=== PATIENT | female | born 1945 | race Caucasian/White ===

== ENCOUNTER → 2020-03-31 | Outpatient (CLI) | payer OTHER ==
[~2020-03-31] MED LIST: ASPI81CH; Biotin1 MG; CALCAVITD PO; CITA20 PO; CODLIVC PO; GABA100 PO; LEVSOD88 PO; MULVITMINF PO; VITAMIN D PO; ZOLP5 PO
== END ==
LOC: LAB SHORT 08:04 → PLD 08:04
DX: D48.5 Neoplasm of uncertain behavior of skin (principal)
CPT/HCPCS: 88305

== ENCOUNTER → 2022-04-07 | Outpatient (CLI) | payer OTHER ==
[~2022-04-07] MED LIST changes: +ASPI325 PO; +CLOBETASOL EMOL15 G1; +DULO30 PO; +Flovent Diskus50 MCG IH; +LOSA25 PO; +PRAV20 PO; +TOPROL XL25 MG PO
[2022-04-07 11:33] LABS: SARS-Cov-2 (COVID-19) PCR, MMC NEGATIVE (NEGATIVE)
== END ==
LOC: LAB 10:25 → LAB SHORT 10:25
PROVIDERS: Internal Medicine Cardiovascular Disease
DX: Z20.822 Contact with and (suspected) exposure to COVID-19 (principal)
CPT/HCPCS: U0004

== ENCOUNTER → 2022-07-19 | Outpatient (CLI) | payer OTHER | END | disposition home or self-care (01) | LOC: LAB SHORT 07:51 → PLD 07:51 | DX: C44.329 Squamous cell carcinoma of skin of other parts of face (principal); D36.11 Benign neoplasm of peripheral nerves and autonomic nervous system of face, head, and neck | CPT/HCPCS: 88305 ==

== ENCOUNTER → 2022-09-11 | Outpatient (CLI) | payer OTHER | END | disposition home or self-care (01) | LOC: LAB SHORT 11:22 → LAB 11:22 | DX: N39.0 Urinary tract infection, site not specified (principal) | CPT/HCPCS: 87077; 87086; 87186 ==

== ENCOUNTER → 2023-07-26 | Outpatient (CLI) | payer OTHER | END | disposition home or self-care (01) | LOC: LAB 13:09 → LAB SHORT 13:09 | DX: C44.310 Basal cell carcinoma of skin of unspecified parts of face (principal); D48.5 Neoplasm of uncertain behavior of skin | CPT/HCPCS: 88305 ==

== ENCOUNTER → 2023-10-11 | Outpatient (CLI) | payer OTHER | END | disposition home or self-care (01) | LOC: LAB 09:12 → LAB SHORT 09:12 | DX: R30.0 Dysuria (principal) | CPT/HCPCS: 87077; 87086; 87186 ==

== ENCOUNTER → 2023-12-28 | Outpatient (CLI) | payer OTHER | LOC: LAB 18:04 → LAB SHORT 18:04 | DX: N39.0 Urinary tract infection, site not specified (principal) | CPT/HCPCS: 87077; 87086; 87186 ==

== ENCOUNTER → 2025-02-28 | Outpatient (CLI) | payer OTHER | LOC: LAB 09:04 → LAB SHORT 09:04 | DX: R30.0 Dysuria (principal) | CPT/HCPCS: 87077; 87086; 87186 ==